=== PATIENT | male | born 1975 | race Caucasian/White ===

== ENCOUNTER 2016-05-27 10:55 | Day surgery (SDC) | payer BC ==
[~2016-05-27] VITALS: Ht 205.7 cm; Wt 99.5 kg
[2016-05-27] VITALS (8 sets, daily range): BP systolic 103–128; BP diastolic 69–84; PULSE 83–102; TEMP 98.7–98.9
[2016-05-27] MEDS ORDERED: ROXICODONE 55 MG/TAB PO ×2 (11:54→16:50)
[2016-05-27] MEDS ORDERED: ZOCOR 40MG40 MG PO (11:54)
[2016-05-27] MEDS ORDERED: OXYCODONE H5 MG/5 ML PO (11:55)
[2016-05-27] MEDS ORDERED: FORTAMET500 M1 PO (11:55)
[2016-05-27] MEDS ORDERED: JARDIANCE10 PO (11:55)
[2016-05-27] MEDS ORDERED: [UNRECOGNIZED DRUG - OTHER] MM (11:58)
[2016-05-27 12:40] LABS: CALCIUM 9.5 mg/dL (8.4-10.2); CREATININE, serum 0.76 mg/dL (0.66-1.25); POTASSIUM 4.2 mmol/L (3.4-5.0)
[2016-05-27] MEDS ORDERED: ZOFRAN ODT4 MG PO (16:49)
== END 2016-05-27 19:00 | disposition home or self-care (01) ==
LOC: SDCO 10:55
PROVIDERS: Surgery
DX: R13.10 Dysphagia, unspecified (principal); C09.1 Malignant neoplasm of tonsillar pillar (anterior) (posterior)
CPT/HCPCS: J1170; J2250; J2405; J2704; J7030

== ENCOUNTER 2016-10-15 12:30 | Outpatient (RCR) | payer BC ==
[~2016-10-15 12:30] MED LIST: FORTAMET500 M1 PO; JARDIANCE10 PO; OXYCODONE H5 MG/5 ML PO; ROXICODONE 55 MG/TAB PO; ZOCOR 40MG40 MG PO; ZOFRAN ODT4 MG PO; [UNRECOGNIZED DRUG - OTHER] MM
== END 2016-10-16 14:30 | disposition home or self-care (01) ==
LOC: WSST 12:30
DX: C09.8 Malignant neoplasm of overlapping sites of tonsil (principal)

== ENCOUNTER 2017-05-13 11:53 | Inpatient (IN) | payer OTHER ==
[2017-05-13] VITALS (292 sets, daily range): BP systolic 95–153; BP diastolic 67–99; PULSE 58–90; TEMP 97–98.2; O2SAT 94–100
[~2017-05-13] VITALS: Ht 175.3 cm; Wt 97.3 kg
[2017-05-13] MEDS ORDERED: BRILINTA90 MG PO (12:51)
[2017-05-13] MEDS ORDERED: SYNTHROID0.1 MG/TAB PO (12:52)
[2017-05-13] MEDS ORDERED: LIPITOR 80MG80 MG PO (12:52)
[2017-05-13] MEDS ORDERED: ASPIRIN E.C. 8181 MG PO (12:52)
[2017-05-14] VITALS (590 sets, daily range): BP systolic 92–127; BP diastolic 58–72; PULSE 57–88; TEMP 95.6–98.6; O2SAT 82–99
[2017-05-14 05:56] LABS: BASO # 0.1 (0.0-0.2); BASO % 0.8 % (0.0-2.0); EOS # 0.2 (0.0-0.7); EOS % 2.4 % (0-4.0); GRAN # 5.8 (1.4-6.5); GRAN % 78.4 % (42.2-75.2); HEMATOCRIT 40.4 % (42.0-52.0); HEMOGLOBIN 13.7 g/dl (13.5-18.0); LYMPH # 0.7 (1.2-3.4); LYMPH % 9.9 % (20.0-51.0); MEAN CELL VOLUME 91 fl (80.0-100.0); MEAN CORPUSCULAR HEMOGLOBIN 31 pg (27.0-31.0); MEAN CORPUSCULAR HGB CONC 34 g/dl (33.0-37.0); MEAN PLATELET VOLUME 10.3 fl (7.4-10.4); MONO # 0.6 (0.1-0.6); MONO % 8.1 % (1.7-9.3); PLATELET COUNT 199 K/mm3 (130-400); RED BLOOD COUNT 4.45 M/mm3 (4.20-5.60); REDCELL DISTRIBUTION WIDTH-CV 13.2 % (11.5-14.5)
[2017-05-14 06:09] LABS: CALCIUM 9.1 mg/dL (8.4-10.2); CREATININE, serum 0.93 mg/dL (0.66-1.25); POTASSIUM 4.2 mmol/L (3.4-5.0)
[2017-05-14] MEDS ORDERED: NITROSTAT0.4 MG/TAB SL (09:47)
[2017-05-14] MEDS ORDERED: TOPROL XL 25MG25 MG PO (09:48)
== END 2017-05-14 13:52 | disposition home or self-care (01) | DRG 247 ==
LOC: ICU 11:53
PROC: B2111ZZ Fluoroscopy of Multiple Coronary Arteries using Low Osmolar Contrast (ICD-10-PCS; principal; 2017-05-13)
PROC: 027034Z Dilation of Coronary Artery, One Artery with Drug-eluting Intraluminal Device, Percutaneous Approach (ICD-10-PCS; 2017-05-13)
DX: I25.110 Atherosclerotic heart disease of native coronary artery with unstable angina pectoris (principal); Z95.5 Presence of coronary angioplasty implant and graft; Z85.12 Personal history of malignant neoplasm of trachea; Z87.891 Personal history of nicotine dependence
CPT/HCPCS: 99238; C1760; C1769; C1874; C1887; C1894; C9600; J1644; J2250; J3010; Q9967

== ENCOUNTER → 2018-03-18 | Outpatient (CLI) | payer OTHER ==
[~2018-03-18] MED LIST changes: +ASPIRIN E.C. 8181 MG PO; +BRILINTA90 MG PO; +LIPITOR 80MG80 MG PO; +NITROSTAT0.4 MG/TAB SL; +SYNTHROID0.1 MG/TAB PO; +TOPROL XL 25MG25 MG PO
== END ==
LOC: COL.RAD 07:48
DX: K21.9 Gastro-esophageal reflux disease without esophagitis (principal); K30 Functional dyspepsia
CPT/HCPCS: A9541

== ENCOUNTER 2020-10-26 23:47 | Emergency (ER) | payer OTHER ==
[~2020-10-26] VITALS: Ht 175.3 cm; Wt 113.2 kg
[~2020-10-26 23:47] MED LIST changes: +COREG 6.256.25 MG/TA PO; +COZAAR 25MG25 MG/TAB PO; +FORT1000TA PO; +GLUCOPHAGE XR500 M1 PO; +GLUCOPHAGE500 MG/TAB PO; +GLUCOTROL XL5 MG/TAB PO; +SYNTHROID 0.10.15 MG PO
[2020-10-27 00:42] LABS: BASO # 0.1 (0.0-0.2); BASO % 1.2 % (0.0-2.0); EOS # 0.3 (0.0-0.7); GRAN # 3.5 (1.4-6.5); GRAN % 69.6 % (42.2-75.2); HEMATOCRIT 42.7 % (42.0-52.0); HEMOGLOBIN 14.4 g/dl (13.5-18.0); LYMPH # 0.8 (1.2-3.4); MEAN CELL VOLUME 88 fl (80.0-100.0); MEAN CORPUSCULAR HEMOGLOBIN 30 pg (27.0-31.0); MEAN CORPUSCULAR HGB CONC 34 g/dl (33.0-37.0); MEAN PLATELET VOLUME 9.8 fl (7.4-10.4); MONO # 0.4 (0.1-0.6); MONO % 7.8 % (1.7-9.3); PLATELET COUNT 248 K/mm3 (130-400); RED BLOOD COUNT 4.87 M/mm3 (4.20-5.60); REDCELL DISTRIBUTION WIDTH-CV 13.2 % (11.5-14.5)
[2020-10-27 00:55] LABS: ALBUMIN 4.4 gm/dL (3.5-5.0); BILIRUBIN,TOTAL 0.9 mg/dL (0.0-1.0); CALCIUM 9.8 mg/dL (8.4-10.2); CREATININE, serum 0.88 (0.66-1.25); POTASSIUM 4.8 mmol/L (3.4-5.0); TOTAL PROTEIN 7.6 gm/dL (6.4-8.2)
[2020-10-27 01:36] VITALS: BP 161/89; PULSE 89; TEMP 97.7
== END 2020-10-27 01:36 | disposition home or self-care (01) ==
LOC: COL.ER 23:47
PROVIDERS: Nurse Practitioner
DX: M79.604 Pain in right leg (principal); I25.10 Atherosclerotic heart disease of native coronary artery without angina pectoris; I10 Essential (primary) hypertension; Z79.02 Long term (current) use of antithrombotics/antiplatelets; Z79.899 Other long term (current) drug therapy; Z79.82 Long term (current) use of aspirin

== ENCOUNTER 2021-02-20 11:12 | Day surgery (SDC) | payer OTHER ==
[2021-02-20] VITALS (9 sets, daily range): BP systolic 98–158; BP diastolic 63–84; PULSE 65–77; TEMP 97.6
[~2021-02-20] VITALS: Ht 175.4 cm; Wt 110.0 kg
[2021-02-20 12:08] LABS: HEMATOCRIT 43.3 % (42.0-52.0); HEMOGLOBIN 14.8 g/dl (13.5-18.0); MEAN CELL VOLUME 89 fl (80.0-100.0); MEAN CORPUSCULAR HEMOGLOBIN 30 pg (27.0-31.0); MEAN CORPUSCULAR HGB CONC 34 g/dl (33.0-37.0); MEAN PLATELET VOLUME 9.8 fl (7.4-10.4); PLATELET COUNT 269 K/mm3 (130-400); RED BLOOD COUNT 4.88 M/mm3 (4.20-5.60); REDCELL DISTRIBUTION WIDTH-CV 13.4 % (11.5-14.5)
[2021-02-20] MEDS ORDERED: COZAAR100 MG PO (12:13)
[2021-02-20 12:15] LABS: PARTIAL THROMBOPLASTIN TIME 30.2 SECONDS (26.0-37.0)
[2021-02-20] MEDS ORDERED: PRILOSEC 20MG20 MG PO (12:17)
[2021-02-20] MEDS ORDERED: FARXIGA10 PO (12:17)
[2021-02-20] MEDS ORDERED: ZYRTEC 10MG10 MG PO (12:18)
[2021-02-20] MEDS ORDERED: NORVASC 5MG5 MG/TAB PO (12:18)
--- NOTE | 2021-02-20 12:19 | NUR ---
SEE MERGE FOR MEDICATION ADMINISTRATION TIMES/DOSAGES AND INTRA/POST SEDATION ASSESSMENT.
[2021-02-20 12:21] LABS: CALCIUM 9.7 mg/dL (8.4-10.2); CREATININE, serum 1.05 mg/dL (0.72-1.25); POTASSIUM 3.5 mmol/L (3.5-4.5)
--- NOTE | 2021-02-20 13:20 | NUR ---
PT RETURNED TO [facility] VIA BED FROM CLINICAL ASST. PT IS SLEEPY, BUT OPENS EYES AND TALKS TO STAFF, NO C/O, CALL LIGHT IN REACH, TR BAND ON
--- NOTE | 2021-02-20 14:30 | NUR ---
NO CHANGES, PT CON'T TO DOZE OFF AND ON MOST OF TIME, AWAKENS EASILY, THEN GOES BACK TO SLEEP, STATES DID NOT SLEEP LAST NIGHT. PT DECLINED DRINK AT THIS TIME. NO REQUESTS
--- NOTE | 2021-02-20 15:20 | NUR ---
RADIAL BAND STARTED TO BE REALESED, 2CC AT A TIME OVER 20 MIN WITH NO BLEEDING OR SWELLING, BANDAID OVER SITE THEN LIGHT COBAN.
--- NOTE | 2021-02-20 15:45 | NUR ---
PT SAT ON SIDE OF BED, DRINKS SPRITE. REVIEWED DISCHARGE INST. WITH PT ON ACTIVITY, CARE OF SITE, NEXT APPT. NO MED CHANGES TODAY, VERBAL UNDERSTANDING. IV D'CD INTACT.
--- NOTE | 2021-02-20 16:20 | NUR ---
PT UP IN ROOM DRESSED, DISCHARGED VIA W/C TO CAR WITH FAMILY MEMBER
== END 2021-02-20 16:20 | disposition home or self-care (01) ==
LOC: COL.CAR 11:12
PROVIDERS: Internal Medicine Cardiovascular Disease
DX: I25.110 Atherosclerotic heart disease of native coronary artery with unstable angina pectoris (principal); R07.89 Other chest pain; E11.9 Type 2 diabetes mellitus without complications; K21.9 Gastro-esophageal reflux disease without esophagitis; I25.2 Old myocardial infarction; E78.5 Hyperlipidemia, unspecified; I10 Essential (primary) hypertension; Z87.891 Personal history of nicotine dependence; Z80.0 Family history of malignant neoplasm of digestive organs; Z83.3 Family history of diabetes mellitus
CPT/HCPCS: C1769; J0153; J1644; J2250; J3010; Q9967

== ENCOUNTER → 2021-07-29 | Outpatient (CLI) | payer OTHER ==
[~2021-07-29] MED LIST changes: +COZAAR100 MG PO; +FARXIGA10 PO; +NORVASC 5MG5 MG/TAB PO; +PRILOSEC 20MG20 MG PO; +ZYRTEC 10MG10 MG PO
== END ==
LOC: COL.PUL 12:43
DX: R06.02 Shortness of breath (principal)
CPT/HCPCS: J7674

== ENCOUNTER 2022-01-31 08:49 | Day surgery (SDC) | payer OTHER ==
[~2022-01-31] VITALS: Ht 175.3 cm; Wt 104.5 kg
[2022-01-31 10:35] VITALS: BP 110/76; PULSE 67
[2022-01-31 11:05] VITALS: BP 99/68; PULSE 70; TEMP 98.2
--- NOTE | 2022-01-31 11:05 | NUR ---
PATIENT IS AWAKE AND ORIENTED. VITAL SIGNS WNL. HE REQUESTS DIET SPRITE TO DRINK. WAITING FOR DOCTOR TO SPEAK WITH PATIENT. WILL CONTINUE TO MONITOR.
--- NOTE | 2022-01-31 11:05 | NUR ---
PATIENT IS AWAKE AND ORIENTED. VITAL SIGNS WNL. HE REQUESTS DIET SPRITE TO DRINK. WAITING FOR DOCTOR TO SPEAK WITH PATIENT. WILL CONTINUE TO MONITOR.
--- NOTE | 2022-01-31 11:20 | NUR ---
PATIENT IS DOING WELL. DENIES ANY NAUSEA AFTER DRINKING. VITAL SIGNS WNL. DOCTOR AT BEDSIDE. IV DISCONTINUED. WILL CONTINUE TO MONITOR.
--- NOTE | 2022-01-31 11:20 | NUR ---
PATIENT IS DOING WELL. DENIES ANY NAUSEA AFTER DRINKING. VITAL SIGNS WNL. DOCTOR AT BEDSIDE. IV DISCONTINUED. WILL CONTINUE TO MONITOR.
[2022-01-31 11:35] VITALS: BP 119/91; PULSE 67
--- NOTE | 2022-01-31 11:35 | NUR ---
PATIENT IS READY FOR DISCHARGE. VITAL SIGNS WNL. DISCHARGE INSTRUCTIONS REVIEWED. WILL DISCHARGE ONCE HE IS DRESSED.
--- NOTE | 2022-01-31 11:35 | NUR ---
PATIENT IS READY FOR DISCHARGE. VITAL SIGNS WNL. DISCHARGE INSTRUCTIONS REVIEWED. WILL DISCHARGE ONCE HE IS DRESSED.
[2022-01-31 13:02] VITALS: BP 130/90; PULSE 76; TEMP 97.1
== END 2022-01-31 11:40 | disposition home or self-care (01) ==
LOC: SDCO 08:49
DX: Z12.11 Encounter for screening for malignant neoplasm of colon (principal); K21.9 Gastro-esophageal reflux disease without esophagitis; Z87.891 Personal history of nicotine dependence
CPT/HCPCS: J2704; J7120